=== PATIENT | male | born 1955 | race Caucasian/White ===

== ENCOUNTER 2016-07-07 18:03 | Inpatient (IN) ==
[2016-07-07] MEDS ORDERED: DUONEB (A & A) INH ONE (18:30)
[2016-07-07] MEDS ORDERED: SOLU-MEDROL IV ONE (18:31)
[2016-07-07 18:50] LABS: ALLEN TEST YES; BE 1.8 mmoll (-3.0-3.0); BLOOD TYPE ARTERIAL; METHB 1.1 % (0.0-1.5); O2(CT) 17.8 mL/dL (15.0-23.0); PCO2(98.6) 29 mmHg (35-45); PO2(98.6) 63 mmHg (60-100); SAMPLE BLOOD; SAO2 95.3 % (95.0-100.0); THB 13.9 g/dL (11.5-17.4); pH(98.6) 7.52 (7.35-7.45)
[2016-07-07 18:51] LABS: MODALITY ROOM AIR
[2016-07-07 19:30] LABS: BASO% 0.1 % (0.0-0.8); HEMOGLOBIN 13.8 g/dL (14.0-18.0); IMM GRAN# 0.07 X1000 (0.0-0.04); IMM GRAN% 0.3 % (0.0-0.5); LYMPH# 1.95 X1000 (1.2-3.4); LYMPH% 9.2 % (20.5-51.1); MANUAL DIFF NEEDED? NO; MCH 31.7 PG (27-31); MCHC 34.5 g/dL (33-37); MONO# 1.73 X1000 (0.11-0.59); MONO% 8.2 % (1.7-9.3); MPV 10.6 FL (7.4-10.4); NEUT% 82.2 % (42.2-75.2); PLT 362 X1000 (130-400); RBC 4.35 XMIL (4.7-6.1)
[2016-07-07 19:36] LABS: INR 0.99; PROTIME 10.4 Seconds (9.2-11.7)
[2016-07-07] MEDS ORDERED: LEVAQUIN 750 MG/D5W 750 MG/150 ML IVPB IV ONE (19:38)
[2016-07-07 19:41] LABS: AGAP 15; ALBUMIN 3.9 g/dL (3.5-5.0); ALKALINE PHOSPHATASE 75 U/L (32-122); BUN 21 mg/dL (8-22); CALCIUM 9.4 mg/dL (8.8-10.2); CHLORIDE 98 mmol/L (98-107); COSMO 275; GOT 18 U/L (10-34); GPT 23 U/L (10-44); MAGNESIUM 1.9 mg/dL (1.5-2.7); SODIUM 136 mmol/L (136-145); TCO2 23 mmol/L (25-35); TOTAL BILIRUBIN 1.02 mg/dL (0.20-1.00); TOTAL PROTEIN 7.7 g/dL (6.3-8.3)
[2016-07-07 19:43] LABS: CK PROFILE 252 U/L (24-204)
--- NOTE | 2016-07-07 19:54 | PROVIDER DOCUMENTATION ---
This chart was entered by Samara Zhang Scribe, acting as scribe for Adonay Quispe CRNP. HPI-Respiratory General - General Chief Complaint: Shortness of Breath Stated Complaint: SOB Time Seen by Provider: 07/07/16 18:26 Source: patient Allergies/Adverse Reactions: Patient Allergies Allergy/AdvReac Type Severity Reaction Status Date / Time No Known Allergies Allergy Verified 07/07/16 18:56 Home Medications: Home Medication List Medication Instructions Recorded Confirmed Last Taken Type Albuterol 2.5MG/Ipratrop 0.5MG 3 ml INH Q6H PRN PRN 02/02/14 07/07/16 07/07/16 15:00 History [Duoneb (A & A)] Diclofenac 1% Gel [Voltaren 1% Gel] 1 applicatn TOP PRN PRN 08/12/14 07/07/16 19:00 History 1900 topical Hydrocodone/Acetaminophen [Curtiss 1 each PO Q4-6H PRN PRN #30 tablet 12/11/14 Unknown Rx 10-325 Tablet] Diclofenac Submicronized [Zorvolex] 35 mg PO TID 07/07/16 07/07/16 07/04/16 07: 00 History Tizanidine HCl [Zanaflex] 4 mg PO PRN PRN 07/07/16 07/07/16 Unknown History - History of Present Illness-Resp Nature of Presenting Problem: 60 year old M presents to the ED with a cc of SOB x1 week. PT states that he has been using his inhaler with no relief. Pt states that he is still smoking 5 cigarettes a day. PT states that he has also had a cough with yellow/green sputum. Pt states that he also took some antibiotics given to him by a friend with no relief. PT states that he did not know what they were. Severity in ED: reports: moderate Onset/Duration: reports: 1 week ago Timing: reports: still present Cough Quality/Degree: reports: moderate, productive cough, sputum Current Respiratory Medication Therapy: Initiated see nurses note Associated Symptoms: reports: cough, shortness of breath Similar Symptoms Previously?: No Recently seen or treated by another doctor?: No Review of Systems - Adult - REVIEW OF SYSTEMS - ADULT Constitutional: denies: chills, fever Eyes: reports: no symptoms reported Ears, Nose, Mouth & Throat: reports: no symptoms reported Cardiovascular: denies: chest pain, palpitations Respiratory: reports: cough, excessive sputum production. denies: shortness of breath Gastrointestinal: denies: nausea, vomiting Genitourinary: reports: no symptoms reported Musculoskeletal: reports: no symptoms reported Integumentary: reports: no symptoms reported Neurological: reports: no symptoms reported Psychiatric: reports: no symptoms reported Endocrine: reports: no symptoms reported Hematologic/Lymphatic: reports: no symptoms reported Allergic/Immunologic: reports: no symptoms reported All Other Systems: Reviewed and Negative Past History - Adult - PAST MEDICAL HISTORY-ADULT Review of Records: reports: Nursing Assessment Review, Medications Reviewed Major Childhood Illnesses: reports: denies history Respiratory: reports: COPD Musculoskeletal: reports: chronic pain, neck/back injury Endocrine/Immune: reports: denies history - PRIOR SURGERIES/PROCEDURES Surgical/Procedure History: reports: reviewed, not pertinent, back/neck - IMMUNIZATION STATUS Childhood Immunizations: See Nurse Assessment Flu Vaccine: See Nurse Assessment - SOCIAL HISTORY Smoking: cigarettes Provider spent 3-5 mins advising pt. on dangers of tobacco.: Discussed manners to quit use, and f/u contacts for add'l counseling. Substance Use: none/never Alcohol Use Frequency: never Physical Exam-General - PHYSICAL EXAM-ADULT Initial Vital Signs Reviewed: Yes - CONSTITUTIONAL General Appearance: alert, moderate distress - RESPIRATORY Respiratory: respiratory distress, accessory muscle use, rhonchi, wheezing, increased rate (tachypnic) - CARDIOVASCULAR Cardiovascular: tachycardia - GASTROINTESTINAL (ABDOMEN) Abdominal Exam: non tender, soft - SKIN Integumentary: normal color, normal turgor, warm/dry - PSYCHIATRIC Psych/Mental Status: normal mood/affect, normal thought content, normal thought process, oriented x 3 Progress - PLAN OF CARE/RESULTS Progress/Plan/Lab Results: Vital Signs - 8 hr 07/07/16 18:05 07/07/16 18:52 07/07/16 19:18 Temperature 98.1 F 98.2 F Pulse Rate 124 H 100 H 104 H Respiratory Rate 25 H 30 H 26 H Blood Pressure 149/101 142/95 O2 Sat by Pulse Oximetry 97 100 Laboratory Results - last 24 hr 07/07/16 07/07/16 07/07/16 18:30 18:49 18:49 WBC 21.19 H RBC 4.35 L Hgb 13.8 L Hct 40.0 L MCV 92.0 MCH 31.7 H MCHC 34.5 RDW Std Deviation 12.7 Plt Count 362 MPV 10.6 H Immature Gran % (Auto) 0.3 Neut % (Auto) 82.2 H Lymph % (Auto) 9.2 L [place] % (Auto) 8.2 Eos % (Auto) 0.0 Baso % (Auto) 0.1 Immature Gran # (Auto) 0.07 H Neut # (Auto) 17.42 H Lymph # (Auto) 1.95 [place] # (Auto) 1.73 H Eos # (Auto) 0.00 Baso # (Auto) 0.02 PT INR PTT (Actin FS) D-Dimer Specimen Type ARTERIAL pH 7.52 H pCO2 29 L pO2 63 HCO3 26.2 H Base Excess 1.8 Oxyhemoglobin 91.0 L ABG O2 Sat (Calculated) 17.8 ABG O2 Saturation 95.3 ABG Carboxyhemoglobin 3.30 H ABG Methemoglobin 1.1 Luis Test YES A-a O2 Difference 50.0 Total Hemoglobin 13.9 Lactate 0.60 Liter Flow 0.0 Blood Gas Modality ROOM AIR FiO2 % 21.0 Sodium 136 Potassium 4.0 Chloride 98 Carbon Dioxide 23 L Anion Gap 15 BUN 21 Creatinine 0.9 Estimated GFR/1.73 m2 > 60 BUN/Creatinine Ratio 23 Glucose 92 Calculated Osmolality 275 Calcium 9.4 Magnesium 1.9 Total Bilirubin 1.02 H AST 18 ALT 23 Alkaline Phosphatase 75 Creatine Kinase 252 H Troponin T Ztd-O-Ljmmbfkhjbc Pept Total Protein 7.7 Albumin 3.9 Globulin 3.8 Albumin/Globulin Ratio 1.0 Plasma Lactate 07/07/16 07/07/16 07/07/16 18:49 18:49 18:49 WBC RBC Hgb Hct MCV MCH MCHC RDW Std Deviation Plt Count MPV Immature Gran % (Auto) Neut % (Auto) Lymph % (Auto) [place] % (Auto) Eos % (Auto) Baso % (Auto) Immature Gran # (Auto) Neut # (Auto) Lymph # (Auto) [place] # (Auto) Eos # (Auto) Baso # (Auto) PT 10.4 INR 0.99 PTT (Actin FS) 26.0 D-Dimer 0.75 H Specimen Type pH pCO2 pO2 HCO3 Base Excess Oxyhemoglobin ABG O2 Sat (Calculated) ABG O2 Saturation ABG Carboxyhemoglobin ABG Methemoglobin Luis Test A-a O2 Difference Total Hemoglobin Lactate Liter Flow Blood Gas Modality FiO2 % Sodium Potassium Chloride Carbon Dioxide Anion Gap BUN Creatinine Estimated GFR/1.73 m2 BUN/Creatinine Ratio Glucose Calculated Osmolality Calcium Magnesium Total Bilirubin AST ALT Alkaline Phosphatase Creatine Kinase Troponin T Juw-O-Wvmluizxyte Pept 134 Total Protein Albumin Globulin Albumin/Globulin Ratio Plasma Lactate 07/07/16 07/07/16 18:49 18:49 WBC RBC Hgb Hct MCV MCH MCHC RDW Std Deviation Plt Count MPV Immature Gran % (Auto) Neut % (Auto) Lymph % (Auto) [place] % (Auto) Eos % (Auto) Baso % (Auto) Immature Gran # (Auto) Neut # (Auto) Lymph # (Auto) [place] # (Auto) Eos # (Auto) Baso # (Auto) PT INR PTT (Actin FS) D-Dimer Specimen Type pH pCO2 pO2 HCO3 Base Excess Oxyhemoglobin ABG O2 Sat (Calculated) ABG O2 Saturation ABG Carboxyhemoglobin ABG Methemoglobin Luis Test A-a O2 Difference Total Hemoglobin Lactate Liter Flow Blood Gas Modality FiO2 % Sodium Potassium Chloride Carbon Dioxide Anion Gap BUN Creatinine Estimated GFR/1.73 m2 BUN/Creatinine Ratio Glucose Calculated Osmolality Calcium Magnesium Total Bilirubin AST ALT Alkaline Phosphatase Creatine Kinase Troponin T < 0.010 Tmj-X-Ipswkgamehd Pept Total Protein Albumin Globulin Albumin/Globulin Ratio Plasma Lactate 0.8 Orders Category Date Time Status Cardiac Monitoring DIRECTED Care 07/07/16 18:28 Active Oxygen Therapy- ED Nursing DIRECTED Care 07/07/16 18:28 Active Saline Loc NOW Care 07/07/16 18:28 Active CHEST-2 VIEWS [RAD] Stat Exams 07/07/16 18:28 Taken ABG [RESP] Routine Lab 07/07/16 18:30 Results BLOOD CULTURE [BLDCUL] Stat Lab 07/07/16 18:44 Results CBC WITH ELECTRONIC DIFF [HEME] Stat Lab 07/07/16 18:49 Completed CK PROFILE [SP CHEM] Stat Lab 07/07/16 18:49 Results COMPREHENSIVE METABOLIC PANEL [CHEM] Stat Lab 07/07/16 18:49 Results D-DIMER [CHEM] Stat Lab 07/07/16 18:49 Completed LACTATE, PLASMA [CHEM] Stat Lab 07/07/16 18:49 Completed MAGNESIUM [CHEM] Stat Lab 07/07/16 18:49 Results PRO B-NATRIURETIC PEPTIDE Stat Lab 07/07/16 18:49 Completed PROTIME WITH INR [COAG] Stat Lab 07/07/16 18:49 Completed PTT [COAG] Stat Lab 07/07/16 18:49 Completed TROPONIN T Stat Lab 07/07/16 18:49 Completed Albuterol 2.5MG/Ipratrop 0.5MG [Duoneb (A & A)] Med 07/07/16 18:30 Discontinued 9 ml INH NOW ONE Levofloxacin 750 mg/D5w [Levaquin 750 mg/D5w] Med 07/07/16 19:38 Active 750 mg in 150 ml IV NOW Methylprednisolone Sod Succ [Solu-Medrol] Med 07/07/16 18:31 Discontinued 125 mg IV NOW ONE Aerosol Treatments Routine Oth 07/07/16 18:31 Completed Aerosol Treatments Stat Oth 07/07/16 18:31 Completed EKG [EKG] Stat Ther 07/07/16 18:07 Ordered Result Diagrams: 07/07/16 18:49 07/07/16 18:49 - EKG 1 Time of EKG reading by physician:: 18:11 EKG Read and Signed by:: Jose Valera EKG Interpretation (*Must complete 3 of following elements*): Abnormal Rate: 109 Rhythm: sinus tachycardia with occasional PVCs - CONSULTS/PCP/HOSPITALIST Notification #1 *Consult/PCP/Hospitalist*: [email or web address] Time Discussed: 19:45 Consult Disposition: Will see in ED, Admit Departure - Departure Time of Disposition Decision: 19:54 DIAGNOSIS: COPD (chronic obstructive pulmonary disease) Qualifiers: COPD type: unspecified COPD Qualified Code(s): J44.9 - Chronic obstructive pulmonary disease, unspecified Disposition: ADMITTED INPATIENT 09 Certified Medical Emergency: Emergent Condition: Stable Referrals and Follow-Ups: Harsh Romo MD [Primary Care Provider] - - Critical Care Note This patient required my direct & personal management of CC.: No Attestation - Physician/ VENICE Attestation Patient care was provided by Advanced Practice Provider:: Yes Advanced Practice Provider:: Adonay Quispe Advanced Practice Provider documentation review:: The Mid-level provider documentation, treatment plan and medical decision making was reviewed by the physician who agrees with all treatment and medical decision making by the MLP. This chart was documented by the indicated scribe, (Samara Zhang, Joseph) and accurately reflects the services I performed and decisions made by me, Adonay Quispe CRNP, as attested by the provider's signature.
--- NOTE | 2016-07-07 20:00 | Diag Imaging Result Doc PS360 ---
EXAM: CHEST-2 VIEWS INDICATION: CP TECHNIQUE: Two views COMPARISON: 10/29/2014 FINDINGS: There are COPD changes with bullae at the lung apices. There is mild biapical scarring. The lungs are grossly clear, otherwise. Cardiac silhouette and central vasculature are unremarkable. IMPRESSION: COPD changes and mild biapical scarring. No definite acute pathology by plain radiograph. Electronically signed by Fidel Rodriguez 07/07/2016 7:58 PM
[2016-07-07 20:03] LABS: CK INDEX 2.2 (0.0-2.5); CK-MB 5.59 ng/mL (0.0-5.0)
[2016-07-07] MEDS ORDERED: NS 1,000 ML IV ONE (21:22)
[2016-07-07 21:49] LABS: URINE CULTURE NEEDED? NO; URINE MICRO REVIEW NEEDED? NO; URINE SOURCE CLEAN CATCH
[2016-07-07 22:02] LABS: BILIRUBIN URINE NEGATIVE (NEGATIVE); BLOOD URINE NEGATIVE (NEGATIVE); COLOR YELLOW; GLUCOSE URINE NEGATIVE (NEGATIVE); LEUKOCYTES URINE NEGATIVE (NEGATIVE); NITRITE URINE NEGATIVE (NEGATIVE); PH URINE 5.5; PROTEIN URINE NEGATIVE (NEGATIVE); SP GRAVITY URINE 1.015; TURBIDITY URINE CLEAR (CLEAR); UROBILINOGEN URINE NORMAL (NORMAL)
[2016-07-07 22:04] LABS: UR EPITHELIAL CELLS <10 /HPF (<10); URINE BACTERIA NEGATIVE /HPF; URINE RBC <10 /HPF (<10); URINE WBC <10 /HPF (<10)
[2016-07-07] MEDS ORDERED: TESSALON PO PRN (22:39)
[2016-07-07] MEDS ORDERED: ZANAFLEX PO PRN (22:39)
[2016-07-07] MEDS ORDERED: ZOFRAN IV PRN (22:39)
[2016-07-07] MEDS ORDERED: SODIUM CHLORIDE 0.9% INJ SCH (22:39)
[2016-07-07] MEDS ORDERED: TYLENOL PO PRN (22:39)
--- NOTE | 2016-07-07 23:17 | HISTORY AND PHYSICAL ---
PRIMARY CARE PHYSICIAN: Dr. Harsh Romo. TIME: 8 p.m. CHIEF COMPLAINT: Shortness of breath and productive cough. HISTORY OF PRESENT ILLNESS: Mr. Vigil is a 60-year-old male who presented to the ER [facility] with complaints of worsening shortness of breath, productive cough with yellow sputum and chills. He reports that his symptoms began approximately 1 week ago and have steadily gotten worse. He also reports that he received some type of injection for neck pain in his neck on June 25 and approximately 3-4 days after this injection is when he stated that he began to not feel well though the symptoms he is having now just began 1 week ago. The patient does have a history of COPD, is a long-time smoker. He has smoked for 40 years. Previously used to smoke anywhere to half a pack to a 3rd a pack of cigarettes per day though states he has cut this down to 5 cigarettes per day at this time. The patient has been previously admitted in the past for pneumonia though his last admission was in 2014. Upon evaluation in the ER today, the patient's vital signs were 98.1 degrees temperature, heart rate 124, respirations 25, blood pressure 149/101, oxygen saturation is 97%. His chest x-ray showed COPD changes and mild biapical scarring. No definite acute pathology by plain radiograph. Though given the patient's reported symptoms, we did decide to do a CT of the thorax with contrast which showed findings of a multilobular pneumonia. There are patchy infiltrates in the right lower lobe and also in the right middle and left lower lobe at a much lesser degree. At this time we will admit the patient for further treatment, evaluation of his pneumonia as well as COPD. REVIEW OF SYSTEMS: A 12 point review of systems was conducted with the patient. All were negative except for pertinent positives mentioned above HPI. PAST MEDICAL HISTORY: 1. COPD. 2. Chronic back pain. PAST SURGICAL HISTORY: The patient reports a low back surgery for a pinched sciatic nerve. SOCIAL HISTORY: The patient is a current every day smoker. He currently smokes 5 cigarettes per day though has smoked for 40 years and did previously smoke anywhere from a half a pack to a 3rd a pack of cigarettes per day. He denies any alcohol or illicit drug use. The patient does live alone. He is . He previously retired from [employer] though currently works for a [employer]. FAMILY HISTORY: He reports his mother secondary to Alzheimer disease. He reports that his father had a history of heart disease. He also has 2 brothers, 1 of which just recently secondary to possible respiratory failure from lung disease. ALLERGIES: Patient reports no known allergies. HOME MEDICATIONS: 1. Albuterol Atrovent nebulizer treatments q.6 hours p.r.n. for shortness of breath. 2. Zorvolex 35 mg p.o. t.i.d. 3. Blossvale 10 mg 1 p.o. 3 times a day for pain. 4. Zanaflex 4 mg p.o. at bedtime p.r.n. for pain and muscle spasms. DIAGNOSTIC DATA: White blood cell count 21.19, hemoglobin 13.8, hematocrit 40.0, platelet count 362,000. PT 10.4, INR 0.99, PTT 26. D-dimer 0.75. Sodium 136, potassium 4, chloride 98, bicarb 23, BUN 21, creatinine 0.9, calcium 9.4, magnesium 1.9, total bilirubin is 1.02 , AST 18, ALT 23, alkaline phosphatase 75, CK is 252, CK index 2.2, CK/MB was 5.59, troponin was less than 0.01. Plasma lactate 0.8. Arterial blood gases were obtained on room air with a pH of 7.52, PCO2 29, PO2 63, HC03 was 26.2 with a base excess of 1.8, O2 saturation was 95.3. Urinalysis was obtained via clean catch was within normal limits, was negative for protein, glucose, ketones, blood, nitrites, leukocytes or bacteria. EKG showed sinus tachycardia with occasional PVCs with possible left atrial enlargement at a rate of 109 with a QTc of 465. CT of the thorax with contrast showed severe emphysema, mild right apical scarring, patchy infiltrate with a tree-in-bud pattern consistent with pneumonia mainly in the right lower lobe but also in the right middle lobe and left lower lobe to a much lesser degrees per Radiology. Pending diagnostic studies at this time are blood culture, sputum culture and repeat cardiac enzymes and EKG. PHYSICAL EXAMINATION: VITAL SIGNS: Temperature 98.2 degrees, heart rate 104, respirations 24 with blood pressure 142/95, oxygen saturation 100% nasal cannula at 2 L. GENERAL: Mr. Vigil is a pleasant 60-year-old male who is resting comfortably in the ER stretcher, he is in no acute distress. He was awake, alert, able to answer all questions appropriately. HEENT: Head atraumatic, normocephalic. Pupils are equal, round, reactive to light. Oral mucosa is moist. Oropharynx clear. NECK: Supple. Trachea midline. No carotid bruits noted upon auscultation. No JVD noted. CARDIOVASCULAR: Patient has normal S1, S2. No murmurs, gallops, rubs appreciated with a slightly tachycardic rate but regular rhythm. PULMONARY: Patient has symmetrical chest expansion bilaterally. Lung sounds in bilateral lung foy were diminished with expiratory wheezing noted. ABDOMEN: Soft, nontender, nondistended. Bowel sounds are present in all 4 quadrants. EXTREMITIES: No cyanosis, clubbing, or edema noted. Pulse, motor and sensory were intact in all extremities. Pedal pulses and radial pulses are 3+ bilaterally. INTEGUMENTARY: Patient's skin is pink, warm, dry, and intact. No lesions or sores noted. NEUROLOGICAL: Patient is alert and orient x4. Cranial nerves 2-12 are grossly intact. ASSESSMENT AND PLAN: 1. Multilobular pneumonia. For this blood cultures and sputum culture have been obtained. We have placed the patient on Levaquin 750 mg IV q.24 hours. We will continue to encourage the patient to turn, cough and deep breathe as well as we will do incentive spirometry q.4 hours and will continue to follow. 2. Leukocytosis. This is likely secondary to the patient's pneumonia. We will continue with treatment as mentioned above for #1 and will continue to follow. 3. Chronic obstructive pulmonary disease exacerbation. For this we will do scheduled DuoNeb treatments q.4 hours. We have also placed the patient on a low dose Solu- Medrol 40 mg IV q.12. We will continue with oxygen therapy to maintain saturations above 90% and will continue to follow. 4. Chronic back pain. We will continue the patient's previously prescribed [place] and Zanaflex. 5. Tobacco abuse. We have discussed with the patient the importance of smoking cessation given his history of chronic obstructive pulmonary disease and will continue to discuss this with him during his admission and upon discharge. We have also placed order for the patient to have a 14 mg transdermal nicotine patch q.24 hours. The patient will be placed in the medical floor with telemetry. Vital signs q.4 hours. DVT prophylaxis was provided with Lovenox 40 mg subcutaneously q.24 hours. GI prophylaxis provided with Protonix 40 mg IV q.24 hours. He will be on a regular diet. His D-dimer was slightly elevated at 0.75. According to Wells criteria the patient has a score of 1.5 for HR > 100, with this score he has a low probability for pulmonary embolism and according the Modified Wells criteria with this score it is unlikely that the patient has pulmonary embolism. Further orders and recommendations pending hospital course, diagnostic studies and physician evaluation. Dictated by ALONDRA Bar for Laura Wills MD Seen and examined pt myself. Plan discussed with CUSTOMER SUCCESS REPRESENTATIVE. cc: Laura Wills MD MTDD
[2016-07-07] MEDS: NORCO-10 PO PRN (23:23)
[2016-07-07] MEDS: PROTONIX IV SCH (23:24)
[2016-07-07] MEDS: LOVENOX SUBQ SCH (23:24)
[2016-07-07] MEDS: NICODERM PATCH TD SCH (23:24)
[2016-07-07] MEDS: DUONEB (A & A) INH SCH ×2 (23:35→23:46)
[2016-07-08 03:24] LABS: HEMATOCRIT 38.1 % (42.0-52.0); HEMOGLOBIN 13.4 g/dL (14.0-18.0); IMM GRAN# 0.02 X1000 (0.0-0.04); IMM GRAN% 0.1 % (0.0-0.5); LYMPH# 0.56 X1000 (1.2-3.4); LYMPH% 3.8 % (20.5-51.1); MANUAL DIFF NEEDED? YES; MCH 32.4 PG (27-31); MCHC 35.2 g/dL (33-37); MONO# 0.17 X1000 (0.11-0.59); MONO% 1.2 % (1.7-9.3); MPV 10.1 FL (7.4-10.4); NEUT% 94.9 % (42.2-75.2); PLT 313 X1000 (130-400); RBC 4.14 XMIL (4.7-6.1)
[2016-07-08 03:44] LABS: LYMPHS 4 % (21-51)
[2016-07-08 04:01] LABS: AGAP 14; BUN 23 mg/dL (8-22); CALCIUM 9.2 mg/dL (8.8-10.2); CHLORIDE 100 mmol/L (98-107); COSMO 279; POTASSIUM 4.7 mmol/L (3.5-5.1); SODIUM 136 mmol/L (136-145); TCO2 22 mmol/L (25-35)
[2016-07-08] MEDS: DUONEB (A & A) INH SCH ×4 (04:49→21:10)
--- NOTE | 2016-07-08 05:26 | EKG Report ---
Test Performed on : 07/08/2016 00:10:57 AM Test Reason : Elevated CK and SOB Blood Pressure : / mmHG Vent. Rate : 106 BPM Atrial Rate : 106 BPM P-R Int : 092 ms QRS Dur : 074 ms QT Int : 352 ms P-R-T Axes : 000 074 087 degrees QTc Int : 467 ms Sinus tachycardia. with short [place] with occasional premature ventricular complexes. Otherwise normal ECG When compared with ECG of 07-JUL-2016 18:11, No significant change was found Confirmed by Doyle KIM, Hernandez Wells ([id number]) on 07/08/2016 7:19:38 AM
--- NOTE | 2016-07-08 05:29 | EKG Report ---
Test Performed on : 07/07/2016 6:11:55 PM Test Reason : PVC's reported from tele Blood Pressure : / mmHG Vent. Rate : 109 BPM Atrial Rate : 109 BPM P-R Int : 128 ms QRS Dur : 080 ms QT Int : 346 ms P-R-T Axes : 080 071 071 degrees QTc Int : 465 ms Sinus tachycardia. with occasional premature ventricular complexes. Possible Left atrial enlargement Borderline ECG When compared with ECG of 17-MAR-2012 08:45, premature ventricular complexes. are now present Unconfirmed Result
--- NOTE | 2016-07-08 07:18 | EKG Report ---
Test Performed on : 07/08/2016 06:16:16 AM Test Reason : Elevated CK and SOB Blood Pressure : / mmHG Vent. Rate : 086 BPM Atrial Rate : 075 BPM P-R Int : 144 ms QRS Dur : 082 ms QT Int : 396 ms P-R-T Axes : 074 069 084 degrees QTc Int : 473 ms Sinus rhythm. with frequent premature ventricular complexes. Otherwise normal ECG When compared with ECG of 08-JUL-2016 00:10, Nonspecific T wave abnormality no longer evident in Anterior leads Confirmed by Doyle KIM, Hernandez Wells ([id number]) on 07/08/2016 3:53:56 PM
[2016-07-08] MEDS: NORCO-10 PO PRN ×2 (07:53→17:48)
[2016-07-08] MEDS: SOLU-MEDROL IV SCH ×2 (08:02→20:37)
--- NOTE | 2016-07-08 08:48 | Diag Imaging Result Doc PS360 ---
EXAM: CT THORAX W/CONTRAST HISTORY: Sob, productive Cough, Leukocytosis TECHNIQUE: CT of the chest with intravenous contrast and dose reduction (clarity.) COMMENT: There are no abnormal fluid collections in the mediastinum or pleura. Mediastinal and right hilar nodes which were present on 08/12/2014 have diminished in size. There is residual scarring in the right apex which has diminished considerably in extent and density from the opacity present on the previous study. Severe bullous emphysema is present. There is a linear opacity posteriorly in the superior segment of the left lower lobe on image 60 which was not present at the time the previous study. This may be due to atelectasis or fibrosis. There is actually worsening of the emphysematous change in this portion of the left lower lobe compared to the previous study. There are tree-in-bud opacities throughout the right lower lobe which were not present at the time the previous study. There is some pleural-based opacity posteriorly in the right lower lobe around image 96 which is diminished in extent and confluence than on the previous study. The pleural effusion which was previously present is no longer present there are in addition some tree-in-bud opacities in the posterior costophrenic sulcus of the left lower lobe which were not present previously. A similar appearance is present in the right middle lobe. IMPRESSION: Pneumonitis/pneumonia, worse in the right lower lobe. Severe COPD. Fibrotic scars as described. Electronically signed by Ej Allen 07/08/2016 8:45 AM
--- NOTE | 2016-07-08 10:10 | CONSULTATION ---
DATE OF CONSULTATION: 07/08/2016 INDICATION: PVCs, bigeminy. HISTORY OF PRESENT ILLNESS: Mr. Vigil is a 60-year-old, white male, who presented to the ER with complaints of worsening shortness of breath over the last several days and worsening even wore over the prior few days. The day he presented he actually had issues with chills, but did not have any fevers at home. He reports more cough as well with occasional productive of yellowish sputum. He has had no orthopnea. He has had a pleuritic chest discomfort made worse by deep breath, as well as coughing. He continues to smoke. He has continued to work despite this and has progressed as far as the worsening of this. He is not having palpitations. He is not having any syncope. PAST MEDICAL HISTORY: 1. COPD. 2. Chronic back pain for which he occasionally receives injections. SOCIAL HISTORY: He continues to smoke. He has a significant other present with him in the room. No alcohol or illicit drugs. FAMILY HISTORY: Significant for Alzheimer disease in his mother. Father had a history of heart disease. REVIEW OF SYSTEMS: A 10 system review of systems is negative, except for those things mentioned in HPI. PHYSICAL EXAMINATION: Vital Signs: The patient is afebrile. His heart rate is 97. Blood pressure 119/65. His telemetry currently shows sinus rhythm with occasional PVCs. General: He is in no acute distress. HEENT: Oropharynx is moist. He has normal dentition. Eye examination shows pink conjunctivae, white sclerae. Neck: Examination shows no obvious thyromegaly or thyroid tenderness. Cardiovascular: He is in a regular rate and rhythm. He has no obvious murmurs. No S3. No lower extremity edema. Chest exam: Has a prolonged expiratory phase with mild bilateral end-expiratory wheezes. He has no increased work of breathing. Abdomen: Soft, nontender, nondistended. He has no obvious organomegaly. Skin Exam: Warm and dry throughout without any rashes. Neurological: He is moving all extremities well. Cranial nerves 2-12 are intact. Psychiatric: Alert and oriented and pleasant. Normal mood and affect. PERTINENT DATA: His EKG on presentation shows sinus tach of 109 beats per minute. One PVC is noted. Subsequent EKG July 08 at 0616 hours shows sinus rhythm, and he has frequent unifocal PVCs. His telemetry shows sinus rhythm with unifocal PVCs. CT scan of the chest shows pneumonitis/pneumonia worse on the right lower lobe with severe COPD and fibrosis. His laboratory data shows a white count of 14.6 improved from 21. His hematocrit is 38, his platelet count is 313. His ABG yesterday had a pH of 7.52, pCO2 of 29, PO2 of 63 on room air. His sodium was 136, potassium 4.7, BUN 23, creatinine 0.8. He had a magnesium level of 2.1. He had negative cardiac enzymes. His proBNP was 134. Lactate was normal. ASSESSMENT: 1. Premature ventricular contractions. 2. Pneumonia. PLAN: At this point, I will check an echo on him; if the echo is unremarkable, I would likely just treat pneumonia as that is the likely inciting factor to his PVCs. Please contact us if we can be of further assistance with this patient. cc: Lasha cMcoy MD
[2016-07-08] MEDS: NICODERM PATCH TD SCH ×2 (10:31→20:37)
--- NOTE | 2016-07-08 13:13 | ECHO REPORT ---
ORDER DATE: 07/08/2016 MEASUREMENTS: 1. Left ventricular end-diastolic diameter 3.1. 2. Systolic diameter 2.3. 3. Posterior wall thickness 1.1. 4. Septal thickness 1.0. 5. Left atrium 3.2. 6. Aortic root 3.8 SUMMARY: 1. Technically difficult study due to limited acoustic window quality. 2. Aortic valve is trileaflet and opens normally on 2-dimensional images. Peak gradient across the aortic valve is less than 10 mmHg. Mitral, tricuspid, and pulmonic valves are without structural abnormality with trace mitral regurgitation and trace tricuspid regurgitation. Estimated systolic PA pressure by Doppler is 20-25 mmHg. Aortic root is normal in size. 3. Normal left ventricular dimensions suggested. Estimated left ejection fraction approximately 55%. No obvious wall motion abnormality can be appreciated. Doppler suggests grade 1 left ventricular diastolic dysfunction. Left atrium, right atrium, and right ventricle are normal size with grossly preserved right ventricular systolic function. 4. No pericardial effusion. 5. Appearance of inferior vena cava suggests normal central venous pressure. 6. Sinus rhythm with frequent ventricular ectopy during study. CONCLUSIONS: 1. Technically difficult study. 2. No significant valvular abnormality. 3. Estimated left ejection fraction 55%. 4. Grade 1 left ventricular diastolic dysfunction suggested. 5. Sinus rhythm with frequent ventricular ectopy. cc: MD Lasha Bender MD
[2016-07-08 14:18] LABS: DRAW SITE R RADIAL
--- NOTE | 2016-07-08 14:45 | PROGRESS NOTE ---
DATE: 07/08/2016 SUBJECTIVE: The patient reports feeling much better. Breathing better. No shortness of breath. No fever or chills. OBJECTIVE: Vital Signs: Temperature 97.4 degrees, heart rate 97, respiratory rate 15, blood pressure 119/65, O2 saturation 97% on 2 L nasal cannula. General: This is a 60-year-old male, lying in bed in no acute distress. HEENT: Head is normocephalic and atraumatic. Anicteric sclerae and pale conjunctivae. Mucous membranes moist. Neck supple. No JVD noted. No carotid bruits. No lymphadenopathy. No thyromegaly. Cardiovascular: S1 and S2 heard. No murmurs, gallops, or rubs. Regular rate and rhythm. Respiratory: There is some wheezing in both bases with globally decreased breath sounds. The patient is not using any accessory muscles or having work of breathing. Abdomen is soft, nontender to palpation. Bowel sounds present. No organomegaly. Extremities: No clubbing, cyanosis, or edema. Peripheral pulses present in both legs. Neurological: The patient is alert and oriented x3. Able to move 4 extremities. Cranial nerves 2-12 grossly normal. LABORATORY DATA: White cell count 14.64, hemoglobin 13.4, hematocrit 38.1, platelets 310,000. BMP unremarkable. ASSESSMENT AND PLAN: 1. Multilobar pneumonia. The patient is on Levaquin 750 mg IV q. 24 hours. The patient is doing fine. She is feeling less short of breath. White cell count is getting much better. We are going to continue with the same management. 2. Chronic obstructive pulmonary disease exacerbation. We will continue with DuoNeb every 4 hours and also Solu-Medrol 40 mg IV q.12 hours as well. 3. Presence of premature ventricular contracture on the EKG. Cardiology has been consulted, and they ordered an ultrasound which reveals no gross abnormalities, only PVCs noted there, so they said that if the echo is normal, they are going to sign off. The patient is not symptomatic, not reporting any chest pain or palpitations. We are going to continue with the same management. 4. Tobacco abuse. The patient has been counseled to stop smoking. cc: Mike Benavidez MD
[2016-07-08] MEDS ORDERED: ROCEPHIN 1 GM/NS 1 GM/50 ML IVPB IV SCH (20:00)
[2016-07-08] MEDS ORDERED: LEVAQUIN PO SCH (20:00)
[2016-07-08] MEDS: LOVENOX SUBQ SCH (20:37)
[2016-07-08] MEDS: PROTONIX IV SCH (20:37)
[2016-07-08] MEDS ORDERED: ZITHROMAX 500 MG/NS 500 MG/250 ML IVPB IV SCH (21:00)
[2016-07-09] MEDS: PROTONIX IV SCH (01:10)
[2016-07-09] MEDS: LOVENOX SUBQ SCH (01:10)
[2016-07-09] MEDS: NICODERM PATCH TD SCH (01:10)
[2016-07-09] MEDS: DUONEB (A & A) INH SCH ×2 (03:35→10:19)
[2016-07-09] MEDS: NORCO-10 PO PRN (06:42)
[2016-07-09] MEDS: SOLU-MEDROL IV SCH (08:33)
[2016-07-09 10:19] LABS: HEMATOCRIT 39.4 % (42.0-52.0); HEMOGLOBIN 13.6 g/dL (14.0-18.0); IMM GRAN# 0.05 X1000 (0.0-0.04); IMM GRAN% 0.2 % (0.0-0.5); LYMPH% 3.8 % (20.5-51.1); MANUAL DIFF NEEDED? YES; MCH 32.2 PG (27-31); MCHC 34.5 g/dL (33-37); MCV 93.1 FL (81-99); MONO# 1.01 X1000 (0.11-0.59); MONO% 4.8 % (1.7-9.3); MPV 10.8 FL (7.4-10.4); NEUT% 91.2 % (42.2-75.2); PLT 356 X1000 (130-400); RBC 4.23 XMIL (4.7-6.1)
[2016-07-09 10:33] LABS: LYMPHS 2 % (21-51)
[2016-07-09 10:34] LABS: MONO 3 % (1-9)
[2016-07-09 10:36] LABS: LARGE PLATELETS 1+
[2016-07-09 11:56] VITALS: BP 155/69
--- NOTE | 2016-07-09 14:11 | DISCHARGE SUMMARY ---
ADMISSION DATE: 07/07/2016 DISCHARGE DATE: 07/09/2016 PERTINENT PROCEDURES: 1. Chest CT showed pneumonitis pneumonia worse on the right lower lobe, severe COPD, probiotics course. 2. Echocardiogram showed an EF of 55% with grade 1 left ventricular diastolic dysfunction. CONSULTATIONS: Dr. Lasha Mccoy of Cardiology. DISCHARGE DIAGNOSES: 1. Multilobar pneumonia. The patient will be discharged on p.o. antibiotics as well as a Medrol Dosepak on DuoNeb inhalers. 2. Chronic obstructive pulmonary disease exacerbation improved. 3. PVCs evaluated by cardiology. Echo was unremarkable, felt it was secondary to his pneumonia. 4. Chronic back pain. Continue with home medicines. 5. Tobacco abuse. Smoking cessation was done daily as well as the means to quit. HOSPITAL COURSE: Mr. Vigil is a 60-year-old male who presented to the ED with complaints of shortness of breath, productive cough, yellow sputum, and chills. His symptoms began a week ago and have steadily gotten worse. Upon evaluation in the ED, heart rate was 124. Blood pressure is 149/101. O2 saturations were 97%. Chest x-ray showed COPD changes with biapical scarring. A CT of the chest was ordered and it showed pneumonitis pneumonia worse in the right lower lobe, severe COPD. The patient was admitted for multilobar pneumonia and COPD exacerbation. He was started on IV Levaquin, IV steroids, well as bronchodilators and aggressive pulmonary toilet and IV Solu- Medrol. Cardiology was consulted for possible bigeminy and frequent PVCs. They did an echocardiogram that was relatively normal. They felt that likely his pneumonia was an enticing factor for his PVCs and they signed off. Clinically, the patient did improve. The patient came in with a white count of 21. On the his white count was down to 14; however, secondary to IV steroids his white count was back up. The patient has been afebrile throughout his admission. He will be discharged to follow up with Dr. Romo in 1 week for a CBC. VITAL SIGNS: Temperature is 97.7 degrees, heart rate 53, respirations 16, blood pressure 155/69, O2 is 97% on room air. DISCHARGE MEDICATIONS: 1. DuoNeb 3 mL inhaled q.6 hours p.r.n. 2. Voltaren 1% gel 1 application topical p.r.n. 3. Tussin DM max liquid 30 mL p.o. as directed. 4. [place] 10/325, 1 each p.o. q.6 hours p.r.n. 5. Levaquin 750 mg p.o. daily for 10 days. 6. Medrol Dosepak 4 mg p.o. as directed. 7. Zanaflex 4 mg p.o. p.r.n. FOLLOW-UP: The patient is being discharged home. He will need to follow up with Dr. Harsh Romo next Wednesday for a CBC to evaluate his white count. The patient can return to the ED for any worsening of symptoms. He has been educated daily on smoking cessation as well as the means to quit. DISCHARGE TIME: 32 minutes. Dictated by ALONDRA Dueñas for Mike Benavidez MD cc: Mike Benavidez MD MTDD
== END 2016-07-09 14:53 | disposition home or self-care (01) ==
LOC: ED 18:03 → SUATTDRO 18:04 → 3N 18:04
PROVIDERS: ATTEND Internal Medicine